=== PATIENT | male | born 1975 | race Caucasian/White ===

== ENCOUNTER 2019-03-26 12:31 | Emergency (ER) | payer OTHER, SELFPAY ==
[2019-03-26 12:32] VITALS: BP 120/69; PULSE 90; RESP 18; TEMP 36.6; O2SAT 96; BMI 28.2
--- NOTE | 2019-03-26 13:02 | RAD_ITS ---
STUDY: X-RAY - LEFT ANKLE REASON FOR EXAM: Male, 44 years old. Pain TECHNIQUE: 3 view(s) of the ankle. COMPARISON: None. FINDINGS: Normal visualized distal tibia and fibula. Normal medial and lateral malleoli. Normal tibiotalar articulation and ankle mortise. Normal visualized talus and calcaneus. The visualized subtalar, talonavicular, calcaneocuboid and tarsal articulations are normal. Mild nonspecific lateral soft tissue swelling RAD/Ankle min 3 Views IMPRESSION: No demonstrated fracture or suspicious osseous lesion Lateral soft tissue swelling Electronically Signed: Derik Saab MD at 13:23 EDT , Service support ,
--- NOTE | 2019-03-26 13:33 | ED.DCSUM_ITS ---
- ER Visit Summary Date of Service: 03/26/19 Chief Complaint: Left ankle injury History of Present Illness: The patient is a 44 M who jumped in the back of his pickup truck this morning and rolled his left ankle. He has been able to ambulate on it. He denies any other injury. Physical Examination: Vital signs unremarkable. Left lower extremity examination reveals tenderness of the lateral malleolus with mild edema. There is no tenderness over the foot itself or the proximal fibula. He has strong distal pulses with good range of motion. Test Results: Left ankle x-rays were obtained per nursing protocol. There is no evidence of fracture. Slight lateral soft tissue swelling is noted. Emergency Department Course and Treatment: Patient be placed in a stirrup air splint. He is given a prescription for naproxen. He has crutches at home that he can use if he feels he needs them. Treatment Plan: [] Disposition: Discharge Impression: Left ankle sprain This note was generated with [employer] dictation software. It may contain incorrect words, spelling, and punctuation that were not noted in review of the chart prior to signing ED Disposition - Plan for ED Patient: Disposition: Home or Assisted Living Instructions: ED Sprain Ankle W X Ray Prescriptions: Naproxen [Naprosyn] 500 mg PO BID PRN PRN #20 tablet PRN Reason: Pain Referrals: Johnson Posey MD [Primary Care Provider] - 1 Week if not improving
[2019-03-26 14:02] VITALS: BP 112/79; PULSE 79
== END 2019-03-26 14:03 | disposition home or self-care (01) ==
LOC: ED 13:44
PROVIDERS: Emergency Provider Emergency Medicine; Family Provider Family Medicine; PCP Family Medicine
DX: S93.402A Sprain of unspecified ligament of left ankle, initial encounter (principal); X50.1XXA Overexertion from prolonged static or awkward postures, initial encounter; Y93.89 Activity, other specified; Y92.812 Truck as the place of occurrence of the external cause
CPT/HCPCS: 73610; 99283

== ENCOUNTER → 2025-02-19 | Outpatient (CLI) | payer OTHER, SELFPAY ==
[2025-02-19 08:38] LABS: Hematocrit 40.9 % (40-54); Hemoglobin 13.7 g/dL (13.0-16.5); Mean Corp Hgb Conc 33.5 g/dL (32-36); Mean Corpuscular Volume 86.7 fL (80-94); Mean Platelet Vol. 11.8 fl (6.2-12.0); Platelet Count 167 K/mm3 (150-450); RBC Distribution Width SD 41.2 fl (35.1-43.9); Red Blood Count 4.72 M/mm3 (4.6-6.2); White Blood Count 5.4 K/mm3 (4.4-11.0)
[2025-02-19 09:15] LABS: ALB/GLOB Ratio 1.7 RATIO (0.9-2.4); AST(SGOT) 26 U/L (<=37); Alanine Aminotransfer ALT/SGPT 30 U/L (<=46); Albumin, Serum 4.3 g/dL (3.5-5.0); Alkaline Phosphatase 91 U/L (40-129); Anion Gap 10 (5-15); BUN 16 mg/dL (4-19); BUN/Creat Ratio 22.6 RATIO (10-20); Chloride 104 mmol/L (98-108); Cholesterol 220 mg/dL (<=200); Creatinine, Serum 0.69 mg/dL (0.70-1.20); EST Glomerular Filtration Rate 114 (>60); Globulin 2.5 g/dL (2.2-4.2); Glucose 106 mg/dL (70-99); High Density Lipoprotein 47 mg/dL; Low Density Lipoprotein Calc. 148 mg/dL; Potassium 4.1 mmol/L (3.3-5.1); Protein, Total 6.8 g/dL (5.9-8.4); Sodium Level 136 mmol/L (133-145); Total Bilirubin 0.79 mg/dL (0.00-1.30); Triglycerides 127 mg/dL; Very Low Density Lipoprotein 25 mg/dL (5-40); cholesterol:hdl ratio screen 4.67
[2025-02-19 09:19] LABS: Hemoglobin A1c 6.1 % (<=5.6)
== END | disposition home or self-care (01) ==
PROVIDERS: PCP Registered Nurse; Referring Provider Registered Nurse; Visit Provider Registered Nurse
DX: Z00.00 Encounter for general adult medical examination without abnormal findings (principal); Z13.1 Encounter for screening for diabetes mellitus
CPT/HCPCS: 36415; 80053; 80061; 83036; 85027